=== PATIENT | male | born 1950 | race Caucasian/White ===

== ENCOUNTER 2018-12-17 12:00 | Emergency (ER) | payer BC, OTHER ==
[~2018-12-17] VITALS: Ht 182.9 cm; Wt 99.4 kg
[2018-12-17 12:11] VITALS: BP 137/72
--- NOTE | 2018-12-17 12:21 | NUR ---
PT AMBULATED TO THE BATHROOM WITH STEADY GAIT. URINE CUP GIVEN
--- NOTE | 2018-12-17 12:26 | NUR ---
PT AMBULATED BACK TO THE [facility] WITH STEADY GAIT.
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
--- NOTE | 2018-12-17 12:57 | NUR ---
PATIENT AMBULATED TO BED 6
--- NOTE | 2018-12-17 12:58 | NUR ---
UA walked over to lab.
[2018-12-17 13:01] LABS: BILIRUBIN,URINE NEGATIVE (NEGATIVE); COLOR,URINE YELLOW (YELLOW); LEUKOCYTE ESTERASE ,URINE NEGATIVE (NEGATIVE); NITRITE, URINE NEGATIVE (NEGATIVE); UGLUCOSE NEGATIVE (NEGATIVE)
[2018-12-17 13:05] LABS: APPEARANCE,URINE CLEAR (CLEAR); BLOOD, URINE TRACE (NEGATIVE); RBC,URINE 0-5 /HPF (0-5); WBC,URINE 0-5 /HPF (0-5)
[2018-12-17] MEDS ORDERED: KETOROLAC 15 MG/ML VIAL IVP ONE (13:55)
[2018-12-17] MEDS ORDERED: NACL 0.9% 1,000 ML IV ONE (13:55)
--- NOTE | 2018-12-17 14:19 | NUR ---
IV 20GA INSERTED TO [facility] WITH GOOD BLOOD RETURN, PT TOLERTAED WELL, BOLUS STATED.
--- NOTE | 2018-12-17 14:20 | NUR ---
PT OFF UINT FOR X-RAY.
[2018-12-17 14:22] LABS: BASOPHILS % (AUTO) 0.2 % (0.0-2.0); EOSINOPHILS % (AUTO) 0.2 % (0.0-4.0); HEMATOCRIT 46.4 % (36-52); HEMOGLOBIN 15.4 g/dL (12.0-18.0); LYMPHOCYTES # (AUTO) 1.1 K/uL (2.0-11.5); LYMPHOCYTES % (AUTO) 9.6 % (20.5-51.1); MEAN CORPUSCULAR HEMOGLOBIN 30 pg (27-31); MEAN CORPUSCULAR HGB CONC 33 g/dL (33-37); MEAN CORPUSCULAR VOLUME 91.8 fL (80-94); MONOCYTES # (AUTO) 0.7 K/uL (0.8-1.0); MONOCYTES % (AUTO) 6.2 % (1.7-9.3); NEUTROPHILS % (AUTO) 83.8 % (42.2-75.2); PLATELET COUNT (AUTO) 145 K/uL (140-450); RED BLOOD CELL COUNT(AUTO) 5.05 MIL/uL (4.20-6.10); RED CELL DISTRIBUTION WIDTH 13.6 % (11.6-13.7)
--- NOTE | 2018-12-17 14:37 | NUR ---
US AT BEDSIDE.
[2018-12-17 14:43] LABS: ANION GAP 10.6 (8-16); CARBON DIOXIDE 30.2 mmol/L (21-32); POTASSIUM 3.8 mmol/L (3.5-5.1)
[2018-12-17 14:44] LABS: CREATININE 1.1 mg/dL (0.7-1.3)
--- NOTE | 2018-12-17 15:00 | NUR ---
PT IS RESTING IN BED, STATED FEELING BETTER NOW, VSS, PAIN 5/10.
--- NOTE | 2018-12-17 15:42 | NUR ---
Dr. Hammonds evaluating patient at bedside.
[2018-12-17 16:00] VITALS: BP 132/78
--- NOTE | 2018-12-17 16:00 | NUR ---
Patient discharged with v/s stable. Written and verbal after care instructions given and explained. Patient verbalized understanding. All questions addressed prior to discharge. Advised to follow up with PMD.
== END 2018-12-17 16:00 | disposition home or self-care (01) ==
LOC: MED 12:00
DX: M54.5 Low back pain (principal); I10 Essential (primary) hypertension; E78.00 Pure hypercholesterolemia, unspecified
CPT/HCPCS: 36415; 72110; 76770; 80048; 81001; 85025; 96374; 99284; J1885; J7030; Q0092

== ENCOUNTER 2019-10-21 07:43 | Emergency (ER) | payer BC, OTHER ==
[~2019-10-21] VITALS: Ht 182.9 cm; Wt 99.8 kg
[2019-10-21 07:50] VITALS: BP 136/88
--- NOTE | 2019-10-21 07:50 | NUR ---
pt ambulated to bed 12 with steady gait.
--- NOTE | 2019-10-21 08:00 | NUR ---
c/o right sided lower back stabbing sharp pain exacerbation denies recent injury or incontinence adds seen by pmd 09/04/19 same complaint rx ibuprofen/gabapentin/baclofen/omeprazole states those medication has not worked for me . Pt aox4 , afibrile , no rom of left hip , no tenderness noted . hx--denies rx---none
--- NOTE | 2019-10-21 08:01 | NUR ---
dr peterson at bedside.
[2019-10-21] MEDS ORDERED: KETOROLAC 15 MG/ML VIAL IVP ONE (08:10)
[2019-10-21] MEDS ORDERED: MORPHINE SULFATE 4 MG/ML SYR IVP ONE (08:10)
[2019-10-21] MEDS ORDERED: DEXAMETHASONE 10 MG/ML VIAL IVP ONE (08:10)
[2019-10-21 09:00] LABS: BASOPHILS # (AUTO) 0.1 K/uL (0.00-0.22); BASOPHILS % (AUTO) 0.8 % (0.0-2.0); EOSINOPHILS # (AUTO) 0.3 K/uL (0-0.4); EOSINOPHILS % (AUTO) 3.6 % (0.0-4.0); HEMATOCRIT 47.7 % (36-52); LYMPHOCYTES # (AUTO) 1.9 K/uL (2.0-11.5); LYMPHOCYTES % (AUTO) 25.1 % (20.5-51.1); MEAN CORPUSCULAR HEMOGLOBIN 32 pg (27-31); MEAN CORPUSCULAR HGB CONC 34 g/dL (33-37); MEAN CORPUSCULAR VOLUME 94.2 fL (80-94); MONOCYTES # (AUTO) 0.8 K/uL (0.8-1.0); MONOCYTES % (AUTO) 10.2 % (1.7-9.3); NEUTROPHILS # (AUTO) 4.7 K/uL (1.8-7.7); NEUTROPHILS % (AUTO) 60.3 % (42.2-75.2); PLATELET COUNT (AUTO) 154 K/uL (140-450); RED BLOOD CELL COUNT(AUTO) 5.06 MIL/uL (4.20-6.10); RED CELL DISTRIBUTION WIDTH 13.5 % (11.6-13.7); WHITE BLOOD COUNT (AUTO) 7.8 K/uL (4.8-10.8)
[2019-10-21 09:10] LABS: ALBUMIN 3.6 g/dL (3.4-5.0); ANION GAP 9.2 (8-16); ASPARTATE AMINOTRANSFERASE 24 U/L (15-37); CARBON DIOXIDE 31.4 mmol/L (21-32); CHLORIDE 105 mmol/L (98-107); CREATININE 1.4 mg/dL (0.6-1.3); GLUCOSE 102 mg/dL (74-106); POTASSIUM 4.6 mmol/L (3.5-5.1); SODIUM SERUM 141 mmol/L (136-145); TOTAL BILIRUBIN 0.8 mg/dL (0.0-1.0); UREA NITROGEN, BLOOD 17 mg/dL (7-18)
[2019-10-21 09:37] VITALS: BP 118/66
--- NOTE | 2019-10-21 09:38 | NUR ---
Patient discharged with v/s stable. Written and verbal after care instructions given and explained regarding abdominal pain. Patient alert, oriented and verbalized understanding of instructions. Ambulatory with steady gait. All questions addressed prior to discharge. ID band removed. Patient advised to follow up with PMD. Rx of norco given. Patient educated on indication of medication including possible reaction and side effects. Opportunity to ask questions provided and answered.
== END 2019-10-21 09:38 | disposition home or self-care (01) ==
LOC: MED 07:43
DX: G89.29 Other chronic pain (principal); M54.5 Low back pain; Z79.899 Other long term (current) drug therapy
CPT/HCPCS: 36415; 80053; 85025; 96374; 96375; 99284; J1100; J1885; J2270

== ENCOUNTER 2020-02-17 07:32 | Emergency (ER) | payer OTHER ==
[~2020-02-17] VITALS: Ht 182.9 cm; Wt 100.0 kg
[2020-02-17 07:40] VITALS: BP 141/67
--- NOTE | 2020-02-17 07:41 | NUR ---
Patient to bed 12. RN evaluating patient at bedside.
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
--- NOTE | 2020-02-17 08:37 | NUR ---
Pt has been taking back from xray via .
[2020-02-17 09:38] VITALS: BP 149/84
--- NOTE | 2020-02-17 09:38 | NUR ---
Patient discharged with v/s stable. Written and verbal after care instructions given and explained. Patient alert, oriented and verbalized understanding of instructions. Ambulatory with steady gait. All questions addressed prior to discharge. ID band removed. Patient advised to follow up with PMD. Rx of Valium given. Patient educated on indication of medication including possible reaction and side effects. Opportunity to ask questions provided and answered.
== END 2020-02-17 09:38 | disposition home or self-care (01) ==
LOC: MED 07:32
DX: M54.16 Radiculopathy, lumbar region (principal); M25.551 Pain in right hip; I10 Essential (primary) hypertension
CPT/HCPCS: 72110; 73502; 99284

== ENCOUNTER 2020-02-19 16:36 | Emergency (ER) | payer OTHER ==
[~2020-02-19] VITALS: Ht 182.9 cm; Wt 100.7 kg
[2020-02-19 16:44] VITALS: BP 134/60
[2020-02-19] MEDS: KETOROLAC 30 MG/ML VIAL IM/IVP ONE (17:21)
[2020-02-19] MEDS: MORPHINE SULFATE 4 MG/ML SYR IVP ONE (17:22)
[2020-02-19] MEDS: ONDANSETRON 4 MG/2 ML VIAL IVP ONE (17:22)
[2020-02-19 19:16] VITALS: BP 129/59
== END 2020-02-19 19:16 | disposition home or self-care (01) ==
LOC: MED 16:36
DX: M54.16 Radiculopathy, lumbar region (principal); I10 Essential (primary) hypertension
CPT/HCPCS: 96374; 96375; 99284; J1885; J2270; J2405

== ENCOUNTER 2020-07-06 18:27 | Emergency (ER) | payer OTHER, BC ==
[~2020-07-06] VITALS: Ht 182.9 cm; Wt 101.6 kg
[2020-07-06 18:45] VITALS: BP 162/72
[2020-07-06 19:47] VITALS: BP 140/78
== END 2020-07-06 19:48 | disposition home or self-care (01) ==
LOC: MED 18:27
DX: M79.661 Pain in right lower leg (principal); M54.9 Dorsalgia, unspecified; I10 Essential (primary) hypertension; Z98.890 Other specified postprocedural states
CPT/HCPCS: 93971; 99284